=== PATIENT | male | born 1965 | race Caucasian/White ===

== ENCOUNTER 2017-03-13 05:03 | Outpatient (CLI) | payer BC ==
[~2017-03-13 05:03] MED LIST: ADDERAL; EZET10TA14 PO; INSULIN PUMP; LISI10TA4 PO
== END 2017-03-13 23:59 | disposition home or self-care (01) ==
LOC: DIABETIC 05:03
PROVIDERS: ATTEND Specialist
DX: E11.65 Type 2 diabetes mellitus with hyperglycemia (principal); I10 Essential (primary) hypertension
CPT/HCPCS: G0108

== ENCOUNTER 2017-06-30 05:00 | Outpatient (CLI) | payer BC | END 2017-06-30 23:59 | disposition home or self-care (01) | LOC: DIABETIC 05:00 | PROVIDERS: ATTEND Specialist | DX: E11.65 Type 2 diabetes mellitus with hyperglycemia (principal); I10 Essential (primary) hypertension | CPT/HCPCS: G0108 ==